=== PATIENT | female | born 1940 | race Caucasian/White ===

== ENCOUNTER 2017-09-02 04:11 | Inpatient (IN) | END 2017-09-09 16:10 | DRG 378 ==

== ENCOUNTER 2018-01-20 07:58 | Inpatient (IN) | END 2018-02-01 13:00 | DRG 602 ==

== ENCOUNTER 2018-08-17 11:48 | Inpatient (IN) | END 2018-08-21 11:20 | disposition home or self-care (01) | DRG 100 ==